=== PATIENT | male | born 1995 | race Caucasian/White ===

== ENCOUNTER 2019-12-14 10:01 | Emergency (ER) | payer BC, MEDICAID, OTHER ==
[~2019-12-14] VITALS: Ht 177.8 cm; Wt 66.0 kg
[2019-12-14] MEDS ORDERED: ONDANSETRON 2MG/ML, 2ML IVPush ONE (10:30)
[2019-12-14] MEDS ORDERED: HYDROmorphone 1 MG/ML, 1ML INJ IVPush PRN (10:30)
--- NOTE | 2019-12-14 10:34 | NUR ---
pt bib [facility] ems, report received from EMS. pt slipped on ice and sustained head injury at approx 0815 while walking into work from car. pt did sustain LOC, per EMS pt did not remember event at time of their arrival, but otherwise had no memory deficits or fluctuations in LOC. pt has been dizzy, nauseous and has vomited several times since fall. on arrival, pt is anxious but oriented x 4 (states date is 12/13/19). resps even and unlabored. neuro intact. nystagmus noted to bilateral eyes when pt instructed to track with eyes, EDMD López notified. pt given 10mg etomidate and 200mcg fentanyl for pain and vomiting prior to arrival by ems. pt denies neck pain/tenderness. pt seen and examined upon arrival by YOSELIN López. c collar applied upon arrival per YOSELIN López's instruction, pt instructed to maintain immobile per c spine precautions, pt instructed to remain NPO. all monitors applied. pt is nsr on diagnostic cardiac sonographer with no ectopy. per EMS, pt was sinus tach rate 90-100, with intermittent bradycardia to rate 50s. EDMD aware. pt has vomited once since arrival, EDMD notified. at this time, no s/sx aspiration. pt speaking in full sentences without difficulty, pt is a&ox4, however states he does not remember fall, states the first thing he remembers is "picking myself up after I fell, I definitely knocked myself unconsious." pt's sister at bedside. awaiting lab and imaging results at this time. pt and family updated with POC.
[2019-12-14] MEDS ORDERED: HYDROmorphone 1 MG/ML, 1ML INJ ONE (10:42)
[2019-12-14] MEDS ORDERED: PROMETHAZINE 25 MG/ML, 1ML ONE (10:42)
[2019-12-14 10:45] LABS: BASOPHILS # (AUTO) 0.05 x10^3/uL (0-0.1); BASOPHILS % (AUTO) 1 % (0-1); EOSINOPHILS # (AUTO) 0.04 x10^3/uL (0-0.4); EOSINOPHILS % (AUTO) 0 % (1-7); LYMPHOCYTES # (AUTO) 0.85 x10^3/uL (1-3.4); LYMPHOCYTES % (AUTO) 9 % (22-44); MD NO; MEAN CORPUSCULAR HEMOGLOBIN 31.3 pg (27.5-34.5); MEAN CORPUSCULAR HGB CONC 34.8 g/dL (33.2-36.2); MEAN CORPUSCULAR VOLUME 90.1 fL (81-97); MEAN PLATELET VOLUME 7.6 fL (7.4-10.4); MONOCYTES # (AUTO) 0.68 x10^3/uL (0.2-0.8); MONOCYTES % (AUTO) 7 % (2-9); NEUTROPHILS # (AUTO) 8.16 x10^3/uL (1.8-6.8); NEUTROPHILS % (AUTO) 83 % (42-75); PLATELET COUNT 226 x10^3/uL (130-400); RED BLOOD COUNT 5.15 x10^6/uL (4.38-5.82); RED CELL DISTRIBUTION WIDTH 12.7 % (9.4-14.8)
[2019-12-14 10:53] LABS: ALBUMIN 4.5 g/dL (3.4-5.0); ANION GAP 11 mmol/L (5-15); CALCIUM 9.6 mg/dL (8.5-10.1); CHLORIDE 106 mmol/L (98-107); CREATININE 0.87 mg/dL (0.7-1.3)
[2019-12-14] MEDS ORDERED: PLEASE ENTER ALLERGIES MC SCH (11:00)
[2019-12-14] MEDS ORDERED: PROMETHAZINE 25 MG/ML, 1ML IM ONE (11:00)
[2019-12-14] MEDS ORDERED: PLEASE ENTER HEIGHT AND WEIGHT MC SCH (11:00)
--- NOTE | 2019-12-14 11:10 | NUR ---
pt medicated for nausea/pain, remains a&ox4, neuro intact. nsr on cadiac monitor. pt states headache now 01/21 (down from 04/22). report to break ALEJANDRA goodman at bedside.
[2019-12-14 13:25] VITALS: BP 120/81
--- NOTE | 2019-12-14 13:27 | NUR ---
piv dc'd with tip intact. pt given dc instructions and script, educated regarding dc rx for norco and phenergan. no n/v at time of dc. pt reports pain tolerable at time of dc. pt ambulatory to dc desk with steady gait accompanied by sister. pt educated not to drive d/t meds given. nadn at dc. Addendum: 12/14/19 at 1328 by NIRANJAN piv dc'd with tip intact. pt given dc instructions and script, educated regarding dc rx for norco and phenergan. no n/v at time of dc. pt reports pain (headache) tolerable at time of dc. neuro intact. pt ambulatory to dc desk with steady gait accompanied by sister. pt educated not to drive d/t meds given. nadn at dc.
== END 2019-12-14 13:27 | disposition home or self-care (01) ==
LOC: ED 13:21
DX: S06.0X1A Concussion with loss of consciousness of 30 minutes or less, initial encounter (principal); W01.0XXA Fall on same level from slipping, tripping and stumbling without subsequent striking against object, initial encounter; Y93.89 Activity, other specified; Y92.69 Other specified industrial and construction area as the place of occurrence of the external cause; Y99.8 Other external cause status
CPT/HCPCS: 36415; 70450; 72125; 80048; 82040; 85025; 96372; 96374; 99285; J1170; J2550